=== PATIENT | male | born 1960 | race Caucasian/White ===

== ENCOUNTER 2016-08-23 12:20 | Emergency (ER) | payer OTHER ==
[~2016-08-23] VITALS: Ht 167.6 cm; Wt 85.0 kg
[2016-08-23 12:20] VITALS: Ht 167.6 cm; Wt 85.0 kg
[~2016-08-23 12:20] MED LIST: ALBU8.5H3 INH; AZIT500T3 PO; DOCU-144 PO; HYD25 PO; HYDR-902 PO; ONDA4TAB14 PO
[2016-08-23] MEDS ORDERED: morphine 4 MG/ML VIAL IV STA (12:47)
[2016-08-23 13:04] LABS: BASOPHILS % 0.6 % (0.0-2.0); EOSINOPHILS # 0.3 10^3/ul (0.0-0.5); EOSINOPHILS % 3.3 % (0.0-7.0); HEMATOCRIT 49.2 % (42.0-52.0); HEMOGLOBIN 16.9 g/dl (14.0-18.0); LYMPHOCYTES # 3.2 10^3/ul (0.8-2.9); MEAN CORPUSCULAR HEMOGLOBIN 34.6 pg (29.0-33.0); MEAN CORPUSCULAR HGB CONC 34.3 g/dl (32.0-37.0); MEAN CORPUSCULAR VOLUME 100.9 fl (82.0-101.0); MEAN PLATELET VOLUME 8.3 fl (7.4-10.4); MONOCYTE # 0.8 10^3/ul (0.3-0.9); NEUTROPHIL # 3.3 10^3/ul (1.6-7.5); NEUTROPHILS % 44.1 % (39.0-77.0); PLATELET COUNT 146 10^3/UL (140-440); RED BLOOD COUNT 4.87 10^6/ul (4.70-6.10); RED CELL DISTRIBUTION WIDTH 13.2 % (11.5-14.5); UNCORRECTED WBC 7.5 10^3/ul (4.8-10.8); WHITE BLOOD COUNT 7.5 10^3/ul (4.8-10.8)
[2016-08-23 13:10] LABS: CONDITION 1
--- NOTE | 2016-08-23 13:21 | RADRPT ---
PROCEDURE: Chest x-ray CLINICAL INDICATION: Pain. TECHNIQUE: One-view frontal. COMPARISON: 05/14/2016 FINDINGS: The cardiac silhouette is normal. No infiltrates are noted. No hilar abnormalities are identified. No pneumothorax or pleural effusions are visualized. Mild aortic calcification/atherosclerosis is noted. IMPRESSION: 1. No active cardiopulmonary changes. RPTAT: HH .Yared Mock MD, MD Date Time Electronically viewed and signed by .Yared Mock MD, on 08/23/2016 13:21 .G/
[2016-08-23 14:01] LABS: ALBUMIN 4.5 g/dl (3.3-4.9)
[2016-08-23 14:02] LABS: CHLORIDE 102 mmol/L (97-110); POTASSIUM 3.7 mmol/L (3.5-5.1); SODIUM 142 mmol/L (135-144)
[2016-08-23 14:03] LABS: INR 0.99; PROTIME 13.1 Sec (12.2-14.2)
[2016-08-23 14:04] LABS: ANION GAP 22 (8-16); ASPARTATE AMINO TRANSFERASE 96 IU/L (15-46); BILIRUBIN,INDIRECT 0.6 mg/dl (0-1.1); BILIRUBIN,TOTAL 0.6 mg/dl (0.2-1.3); CARBON DIOXIDE 22 mmol/L (21-31); CREATININE 0.64 mg/dl (0.61-1.24); PARTIAL THROMBOPLASTIN TIME 29.1 Sec (25.0-35.0)
[2016-08-23 14:05] LABS: ALANINE AMINOTRANSFERASE 54 IU/L (13-69); ALBUMIN/GLOBULIN RATIO 1.25; ALKALINE PHOSPHATASE 95 IU/L (42-121); BLOOD UREA NITROGEN 10 mg/dl (7-20); CALCIUM 8.8 mg/dl (8.4-10.2); GLUCOSE 88 mg/dl (70-220); TOTAL PROTEIN 8.1 g/dl (6.1-8.1)
[2016-08-23 14:06] LABS: D-DIMER 280.38 ng/ml (<460)
[2016-08-23] MEDS ORDERED: HYD25 PO (14:07)
[2016-08-23 14:12] LABS: B-TYPE NATRIURETIC PEPTIDE 31 PG/ML (0-125)
[2016-08-23 14:24] LABS: TROPONIN-I < 0.012 ng/ml (0.00-0.12)
[2016-08-23] MEDS ORDERED: ULT50 PO (14:29)
--- NOTE | 2016-08-23 14:29 | ERD ---
ER Documentation Chief Complaint Date/Time DATE: 08/23/16 TIME: 14:27 Chief Complaint Complains of chest and epigastric pain since this am HPI This is a 56-year-old male presents to the emergency room with a chief complaint of cough, and chest pain. This patient does state that he has had this chest pain constantly for the past 2 weeks which is worse with deep breaths and cough. The patient came to the ER today for evaluation. He describes the pain as an achy pain ROS All systems reviewed and are negative except as per history of present illness. Medications Home Meds Reported Medications Hydrochlorothiazide* (Hydrochlorothiazide*) 25 Mg Tab, 25 MG PO DAILY, #30 TAB 08/23/16 Discontinued Scripts Docusate Sodium* (Colace*) 100 Mg Capsule, 100 MG PO TID Y for CONSTIPATION, # 30 CAP Prov:KATIUSKA WHITESIDE MD 05/14/16 Ondansetron (Ondansetron Odt) 4 Mg Tab.rapdis, 4 MG PO Q6H Y for NAUSEA AND/OR VOMITING, #20 TAB Prov:KATIUSKA WHITESIDE MD 05/14/16 Hydrocodone/Acetaminophen ([place] 10-325 Tablet) 1 Each Tablet, 1 TAB PO Q6H Y for PAIN, #10 TAB Prov:KATIUSKA WHITESIDE MD 05/14/16 Hydrochlorothiazide* (Hydrochlorothiazide*) 25 Mg Tab, 25 MG PO DAILY, #30 TAB Prov:ISABELLA TAVARES MD 10/24/15 Albuterol Sulfate* (Proair HFA*) 8.5 Gm Hfa.aer.ad, 2 PUFF INH Q4 for COUGH, #1 INHALER Prov:ISABELLA TAVARES MD 10/24/15 Azithromycin* (Zithromax*) 500 Mg Tablet, 500 MG PO DAILY for 5 Days, TAB Prov:ISABELLA TAVARES MD 10/24/15 Allergies Allergies: Coded Allergies: No Known Allergy (Unverified , 08/23/16) PMhx/Soc History of Surgery: No Anesthesia Reaction: No Hx Neurological Disorder: No Hx Respiratory Disorders: No Hx Cardiac Disorders: No Hx Psychiatric Problems: No Hx Miscellaneous Medical Probl: Yes Hx Alcohol Use: No Hx Substance Use: No Hx Tobacco Use: No Smoking Status: Never smoker Physical Exam Vitals Vital Signs Date Time Temp Pulse Resp B/P Pulse Ox O2 Delivery O2 Flow Rate FiO2 08/23/16 12:20 98.5 83 20 181/102 98 08/23/16 12:20 Nasal Cannula Physical Exam INITIAL VITAL SIGNS: Reviewed by me GENERAL: The patient is well developed and appropriate for usual state of health in no apparent distress HEENT: Pupils equal, round, and reactive to light. EOMI. There is no scleral icterus. NECK: C-spine is soft and supple, there is no meningismus. There is no cervical lymphadenopathy. LUNGS: Clear to auscultation bilaterally. There are no rales, wheezes or rhonchi. HEART: Regular rate and rhythm, no murmurs, clicks, rubs or gallops. ABDOMEN: Soft, non-tender, non-distended. There are bowel sounds in all four quadrants. No rebound or guarding. EXTREMITIES: There is no peripheral cyanosis or edema. No focal swelling or erythema. NEUROLOGICAL: The patient moves all four extremities with 5/5 strength. Cranial nerves II - XII are intact. Normal gait. Alert and oriented SKIN: There is no apparent rash or petechiae. Musculoskeletal: Tenderness to palpation of the left lateral chest wall, no paradoxical wall HEME/LYMPHATIC: There is no evidence of excessive bruising or lymphedema. PSYCHIATRIC: The patient does not appear anxious or depressed. Result Diagram: 08/23/16 1250 08/23/16 1340 Results 24 hrs Laboratory Tests Test 08/23/16 12:50 08/23/16 13:40 Basophils # 0.010^3/ul Basophils % 0.6% Eosinophils # 0.310^3/ul Eosinophils % 3.3% Hematocrit 49.2% Hemoglobin 16.9g/dl Lymphocytes # 3.210^3/ul Lymphocytes % 42.0% Mean Corpuscular Hemoglobin 34.6pg Mean Corpuscular Hemoglobin Concent 34.3g/dl Mean Corpuscular Volume 100.9fl Mean Platelet Volume 8.3fl Monocytes # 0.810^3/ul Monocytes % 10.0% Neutrophils # 3.310^3/ul Neutrophils % 44.1% Nucleated Red Blood Cells # 0.010^3/ul Nucleated Red Blood Cells % 0.0/100WBC Platelet Count 65440^3/UL Red Blood Count 4.8710^6/ul Red Cell Distribution Width 13.2% White Blood Count 7.510^3/ul Activated Partial Thromboplast Time 29.1Sec Alanine Aminotransferase (ALT/SGPT) 54IU/L Albumin 4.5g/dl Albumin/Globulin Ratio 1.25 Alkaline Phosphatase 95IU/L Anion Gap 22 Aspartate Amino Transf (AST/SGOT) 96IU/L B-Type Natriuretic Peptide 31PG/ML Blood Urea Nitrogen 10mg/dl Calcium Level 8.8mg/dl Carbon Dioxide Level 22mmol/L Chloride Level 102mmol/L Creatinine 0.64mg/dl D-Dimer 280.38ng/ml D-Dimer Comment Direct Bilirubin 0.00mg/dl Globulin 3.60g/dl Glucose Level 88mg/dl INR International Normalized Ratio 0.99 Indirect Bilirubin 0.6mg/dl Potassium Level 3.7mmol/L Prothrombin Time 13.1Sec Prothrombin Time Ratio 1.0 Sodium Level 142mmol/L Total Bilirubin 0.6mg/dl Total Protein 8.1g/dl Troponin I < 0.012ng/ml Current Medications Medications (Trade) Dose Ordered Sig/Gagandeep Route PRN Reason Start Time Stop Time Status Last Admin Dose Admin Morphine Sulfate (morphine) 4 mg ONCE STAT IV 08/23/16 12:47 08/23/16 12:48 DC 08/23/16 13:00 Procedures/MDM EKG: Rate/Rhythm: [Normal Sinus Rhythm] QRS, ST, T-waves: [No changes consistent w/ acute ischemia] Impression: [No evidence of ischemia or arrhythmia] Chest X-ray 1V Interpreted by me: Soft Tissue: No acute abnormalities Bones: No acute abnormalities Mediastinum/Cardiac Silhouette/Lungs: [No acute abnormalities] This 56-year-old male presents to the emergency room for evaluation of left- sided chest pain. The patient has had constant chest pain for the past 2 weeks. His troponin is normal, EKG is nonischemic, chest x-ray is within normal limits. This patient's pain is reproducible with palpation of the anterior chest wall. I do feel this patient's symptoms are secondary to musculoskeletal chest pain. He was given morphine, and has no pain at this time. The patient will be discharged home with a prescription for tramadol. Differential diagnoses entertained was broad with potential high acuity. Patient has been evaluated for acute myocardial infarction, unstable angina, aortic dissection, pulmonary embolism, other intrathoracic and cardiac concerns. Ultimately the patient's evaluation is nondiagnostic. Based on the patient's lack of risk factors, as well as the patient's clinical, laboratory, and imaging data, the patient appears to be low risk for these high risk causes of chest pain. Departure Diagnosis: Primary Impression: Chest wall pain Condition: Stable CHRIS DEE DO Aug 23, 2016 14:29
[2016-08-23 16:34] VITALS: BP 111/69; PULSE 77; RESP 19; TEMP 98.1
== END 2016-08-23 16:34 | disposition home or self-care (01) ==
LOC: E/R 12:20
DX: R07.89 Other chest pain (principal); R40.2142 Coma scale, eyes open, spontaneous, at arrival to emergency department; R40.2252 Coma scale, best verbal response, oriented, at arrival to emergency department; R40.2362 Coma scale, best motor response, obeys commands, at arrival to emergency department
CPT/HCPCS: 71010; 80053; 83880; 84484; 85025; 85378; 85610; 85730; 93005; J2270; 36415; 96374

== ENCOUNTER 2016-09-18 11:02 | Emergency (ER) | payer OTHER ==
[~2016-09-18] VITALS: Wt 92.0 kg
[~2016-09-18 11:02] MED LIST changes: -ALBU8.5H3 INH; -AZIT500T3 PO; -DOCU-144 PO; -HYDR-902 PO; -ONDA4TAB14 PO; +TRAM50TA2 PO
[2016-09-18] MEDS ORDERED: SODIUM CHLORIDE 0.9% 1L BAG IV* STA (11:41)
[2016-09-18] MEDS ORDERED: ALBUTEROL 0.083% (NEB) 2.5 MG/3 ML AMP HHN ONE (12:00)
[2016-09-18] MEDS ORDERED: IBUPROFEN 600 MG TAB PO ONE (12:00)
[2016-09-18] MEDS ORDERED: CEFTRIAXONE 1 GM/50 ML (PMX) 50 ML IVPB ONE (12:00)
[2016-09-18 12:16] LABS: ALBUMIN 4.1 g/dl (3.3-4.9)
[2016-09-18 12:17] LABS: CHLORIDE 99 mmol/L (97-110); INR 0.95; PROTIME 12.7 Sec (12.2-14.2); SODIUM 139 mmol/L (135-144)
[2016-09-18 12:18] LABS: PARTIAL THROMBOPLASTIN TIME 28.4 Sec (25.0-35.0)
[2016-09-18 12:19] LABS: ALBUMIN/GLOBULIN RATIO 1.07; ALKALINE PHOSPHATASE 97 IU/L (42-121); ANION GAP 18 (8-16); ASPARTATE AMINO TRANSFERASE 33 IU/L (15-46); BILIRUBIN,INDIRECT 0.4 mg/dl (0-1.1); BILIRUBIN,TOTAL 0.4 mg/dl (0.2-1.3); CARBON DIOXIDE 26 mmol/L (21-31); CREATININE 0.71 mg/dl (0.61-1.24); TOTAL PROTEIN 7.9 g/dl (6.1-8.1)
[2016-09-18 12:20] LABS: ALANINE AMINOTRANSFERASE 34 IU/L (13-69); BLOOD UREA NITROGEN 10 mg/dl (7-20); CALCIUM 8.8 mg/dl (8.4-10.2); GLUCOSE 91 mg/dl (70-220)
[2016-09-18 12:32] LABS: TROPONIN-I < 0.012 ng/ml (0.00-0.12)
[2016-09-18 12:33] LABS: BASOPHIL # 0.1 10^3/ul (0.0-0.1); BASOPHILS % 1.1 % (0.0-2.0); EOSINOPHILS # 0.1 10^3/ul (0.0-0.5); HEMATOCRIT 43.8 % (42.0-52.0); HEMOGLOBIN 15.4 g/dl (14.0-18.0); LYMPHOCYTES # 1.6 10^3/ul (0.8-2.9); LYMPHOCYTES % 14.9 % (15.0-51.0); MEAN CORPUSCULAR HEMOGLOBIN 34.7 pg (29.0-33.0); MEAN CORPUSCULAR HGB CONC 35.1 g/dl (32.0-37.0); MEAN CORPUSCULAR VOLUME 98.8 fl (82.0-101.0); MEAN PLATELET VOLUME 9.2 fl (7.4-10.4); MONOCYTE # 0.6 10^3/ul (0.3-0.9); MONOCYTES % 5.9 % (0.0-11.0); NEUTROPHIL # 8.2 10^3/ul (1.6-7.5); NEUTROPHILS % 77.1 % (39.0-77.0); PLATELET COUNT 142 10^3/UL (140-440); RED BLOOD COUNT 4.43 10^6/ul (4.70-6.10); UNCORRECTED WBC 10.6 10^3/ul (4.8-10.8); WHITE BLOOD COUNT 10.6 10^3/ul (4.8-10.8)
[2016-09-18 12:34] LABS: CONDITION 1
--- NOTE | 2016-09-18 12:53 | RADRPT ---
PROCEDURE: XR Chest. CLINICAL INDICATION: Sepsis TECHNIQUE: Single AP portable chest COMPARISON: None. FINDINGS: The cardiomediastinal silhouette is within normal limits..The lungs are clear though pleural effusio n or focal consolidation. No pneumothorax. The osseous structures and soft tissues are unremarkable. IMPRESSION: 1. No evidence for active cardiopulmonary disease. RPTAT:AAJJ Physician Laz Date Time Electronically viewed and signed by Physician Laz on 09/18/2016 12:52 RHODA/
[2016-09-18] MEDS ORDERED: AZIT500T5 PO (13:41)
[2016-09-18] MEDS ORDERED: IBUP-1542 PO (13:41)
[2016-09-18] MEDS ORDERED: LORA10TA3 PO (13:41)
[2016-09-18] MEDS ORDERED: ALBU8.5H3 INH (13:41)
--- NOTE | 2016-09-18 13:48 | ERD ---
ER Documentation Chief Complaint Date/Time DATE: 09/18/16 TIME: 13:46 Chief Complaint chest pain wiht coughing and congestion with intermittent fevers. HPI 56-year-old man brought in by EMS for cough, congestion, rhinorrhea, and tactile fevers 3 days. He denies chest pain or calf or leg swelling. Patient denies vomiting or diarrhea. Patient denies recent antibiotic use, sick contacts, or recent travel. ROS All systems reviewed and are negative except as per history of present illness. Medications Home Meds Active Scripts Azithromycin* (Azithromycin*) 500 Mg Tablet, 500 MG PO DAILY, #5 TAB Prov:ISABELLA TAVARES MD 09/18/16 Ibuprofen* (Ibuprofen*) 600 Mg Tablet, 600 MG PO Q8 for FEVER, #30 TAB Prov:ISABELLA TAVARES MD 09/18/16 Loratadine* (Loratadine*) 10 Mg Tablet, 10 MG PO DAILY Y for pete, #12 TAB Prov:ISABELLA TAVARES MD 09/18/16 Albuterol Sulfate* (Proair HFA*) 8.5 Gm Hfa.aer.ad, 2 PUFF INH Q6H Y for COUGH, #1 INHALER Prov:ISABELLA TAVARES MD 09/18/16 Reported Medications Hydrochlorothiazide* (Hydrochlorothiazide*) 25 Mg Tab, 25 MG PO DAILY, #30 TAB 08/23/16 Discontinued Scripts Tramadol HCl (Tramadol HCl) 50 Mg Tablet, 50 MG PO Q6, #20 TAB Prov:CHRIS DEE DO 08/23/16 Allergies Allergies: Coded Allergies: No Known Allergy (Unverified , 08/23/16) PMhx/Soc Hypertension History of Surgery: No Anesthesia Reaction: No Hx Neurological Disorder: No Hx Respiratory Disorders: No Hx Cardiac Disorders: No Hx Psychiatric Problems: No Hx Miscellaneous Medical Probl: Yes (Complains of SON) Hx Alcohol Use: No Hx Substance Use: No Hx Tobacco Use: No Smoking Status: Never smoker FmHx Family History: No diabetes Physical Exam Vitals Vital Signs Date Time Temp Pulse Resp B/P Pulse Ox O2 Delivery O2 Flow Rate FiO2 09/18/16 14:37 98.3 86 20 137/92 98 Room Air 09/18/16 13:00 98.1 86 20 133/85 98 Room Air 09/18/16 12:31 Nasal Cannula 2 09/18/16 11:56 88 22 97 21 09/18/16 11:05 100.9 92 24 149/85 96 Physical Exam GENERAL: Well-developed, well-nourished, well-hydrated, in no apparent distress , febrile HEENT: Moist mucous membranes, positive night nasal congestion and rhinorrhea, no cervical spine tenderness or step-off deformities, no goiter, no jaundice or icterus, extraocular movements intact without pain. No submandibular induration , and no pharyngeal erythema NEURO: Alert and oriented 3, cranial nerves II through XII intact bilaterally, pupils equal round reactive to light, no focal deficits or facial asymmetry, sensation intact distally Strength 5/5 in upper and lower extremities bilaterally CARDIAC: Regular rate and rhythm, no murmurs rubs or gallops LUNGS: Clear bilaterally no wheezing crackles or stridor ABDOMEN: Soft nontender, no guarding, no rigidity, no rebound, no psoas sign no obturator sign. Normoactive bowel sounds SKIN: Warm and dry to touch, no abrasions, contusions, or hematomas, no lacerations, no ecchymosis, no target lesions, and without ulcers EXTREMITIES: No clubbing cyanosis or edema, calves are bilaterally symmetrical, no Homans sign, no popliteal cord sign. Distal pulses equal and bilateral PSYCH: Normal affect without agitation or irritability Result Diagram: 09/18/16 1159 09/18/16 1159 Results 24 hrs Laboratory Tests Test 09/18/16 11:59 Activated Partial Thromboplast Time 28.4Sec Alanine Aminotransferase (ALT/SGPT) 34IU/L Albumin 4.1g/dl Albumin/Globulin Ratio 1.07 Alkaline Phosphatase 97IU/L Anion Gap 18 Aspartate Amino Transf (AST/SGOT) 33IU/L Basophils # 0.110^3/ul Basophils % 1.1% Blood Urea Nitrogen 10mg/dl Calcium Level 8.8mg/dl Carbon Dioxide Level 26mmol/L Chloride Level 99mmol/L Creatinine 0.71mg/dl Direct Bilirubin 0.00mg/dl Eosinophils # 0.110^3/ul Eosinophils % 1.0% Globulin 3.80g/dl Glucose Level 91mg/dl Hematocrit 43.8% Hemoglobin 15.4g/dl INR International Normalized Ratio 0.95 Indirect Bilirubin 0.4mg/dl Lactic Acid Level 1.7mmol/L Lipase 56U/L Lymphocytes # 1.610^3/ul Lymphocytes % 14.9% Mean Corpuscular Hemoglobin 34.7pg Mean Corpuscular Hemoglobin Concent 35.1g/dl Mean Corpuscular Volume 98.8fl Mean Platelet Volume 9.2fl Monocytes # 0.610^3/ul Monocytes % 5.9% Neutrophils # 8.210^3/ul Neutrophils % 77.1% Nucleated Red Blood Cells # 0.010^3/ul Nucleated Red Blood Cells % 0.0/100WBC Platelet Count 12400^3/UL Potassium Level 4.0mmol/L Prothrombin Time 12.7Sec Prothrombin Time Ratio 1.0 Red Blood Count 4.4310^6/ul Red Cell Distribution Width 13.0% Sodium Level 139mmol/L Total Bilirubin 0.4mg/dl Total Protein 7.9g/dl Troponin I < 0.012ng/ml White Blood Count 10.610^3/ul Current Medications Medications (Trade) Dose Ordered Sig/Gagandeep Route PRN Reason Start Time Stop Time Status Last Admin Dose Admin Sodium Chloride 3000 ml 3,000 ml BOLUS OVER 2 HOURS STAT IV* 09/18/16 11:41 09/18/16 11:46 DC 09/18/16 12:26 Ceftriaxone Sodium (Rocephin) 50 ml @ 100 mls/hr ONCE ONCE IVPB 09/18/16 12:00 09/18/16 12:29 DC 09/18/16 12:25 Ibuprofen (Motrin) 600 mg ONCE ONCE PO 09/18/16 12:00 09/18/16 12:01 DC 09/18/16 12:24 Albuterol (Proventil 0.083% (Neb)) 5 mg ONCE ONCE HHN 09/18/16 12:00 09/18/16 12:01 DC 09/18/16 11:56 Procedures/MDM IV line was established patient was placed on groundwater monitoring technician rhythm strip revealed a sinus rhythm at about 80 bpm with upright P and T waves. Patient was febrile, blood and urine cultures ordered results are pending I will follow- up. EKG performed, read by me: 80 bpm, normal sinus rhythm, normal axis, no acute ST segment changes, narrow QRS complex, with good R-wave progression in precordial leads. Chest X-ray 1V Interpreted by me: Soft Tissue: No acute abnormalities Bones: No acute abnormalities Mediastinum/Cardiac Silhouette/Lungs: No acute abnormalities Patient received about 3 L normal saline intravenously, ibuprofen 600 mg p.o., albuterol 10 mg via nebulizer for cough, and ceftriaxone 1 g IV 1. CBC was unremarkable, electrolytes normal, liver function tests normal, troponin was negative, lactic acid was low. Differential diagnoses considered, included but not limited to acute coronary syndrome, pulmonary embolism, aortic dissection, abdominal aortic aneurysm, sepsis, stroke, meningitis, encephalitis, pneumonia, appendicitis, cholecystitis , bowel obstruction, pyelonephritis, nephrolithiasis, cystitis, as well as metabolic, hematologic, and electrolyte abnormalities. As well as abscess, cellulitis, fractures, and dislocations. Patient feels much better at this time, and vital signs are normal, symptoms have improved. I did give strict instructions to return to the ED if symptoms continue or worsen, patient will otherwise follow-up with primary care physician. Patient understood instructions and agreed to plan. Departure Diagnosis: Primary Impression: URI, acute Condition: Good Patient Instructions: Uri, Viral W/ Wheezing (Adult) ISABELLA TAVARES MD Sep 18, 2016 13:48
[2016-09-18 14:37] VITALS: BP 137/92; PULSE 86; RESP 20; TEMP 98.3
== END 2016-09-18 14:39 | disposition home or self-care (01) ==
LOC: E/R 11:02
DX: J06.9 Acute upper respiratory infection, unspecified (principal); R40.2142 Coma scale, eyes open, spontaneous, at arrival to emergency department; R40.2252 Coma scale, best verbal response, oriented, at arrival to emergency department; R40.2362 Coma scale, best motor response, obeys commands, at arrival to emergency department; R07.9 Chest pain, unspecified
CPT/HCPCS: 71010; 80053; 83605; 83690; 84484; 85025; 85610; 85730; 87040; 87400; 94664; J0696; J7030; Z7610; 36415; 93005; 96374